=== PATIENT | female | born 1965 | race Caucasian/White ===

== ENCOUNTER 2020-02-29 11:27 | Emergency (ER) | payer SELFPAY ==
[~2020-02-29] VITALS: Ht 154.9 cm; Wt 85.3 kg
[2020-02-29 11:30] VITALS: BP 149/89; Ht 154.9 cm; Wt 85.3 kg
== END 2020-02-29 12:28 | disposition home or self-care (01) ==
LOC: ED 11:27
DX: U07.1 COVID-19 (principal); J40 Bronchitis, not specified as acute or chronic; I10 Essential (primary) hypertension; Z98.51 Tubal ligation status
CPT/HCPCS: U0003-CS

== ENCOUNTER 2020-03-04 09:36 | Emergency (ER) | payer MEDICAID, SELFPAY ==
[~2020-03-04] VITALS: Ht 157.5 cm; Wt 85.3 kg
[2020-03-04 09:38] VITALS: Ht 157.5 cm; Wt 85.3 kg
[2020-03-04 11:32] VITALS: BP 120/89
== END 2020-03-04 11:32 | disposition home or self-care (01) ==
LOC: ED 09:36
DX: U07.1 COVID-19 (principal); I10 Essential (primary) hypertension; Z98.51 Tubal ligation status; R10.13 Epigastric pain
CPT/HCPCS: Q0092

== ENCOUNTER 2020-03-29 13:02 | Emergency (ER) | payer MEDICAID ==
[~2020-03-29] VITALS: Ht 160 cm; Wt 78.9 kg
[2020-03-29 13:03] VITALS: Ht 160 cm; Wt 78.9 kg
[2020-03-29 15:25] VITALS: BP 144/84
== END 2020-03-29 15:25 | disposition home or self-care (01) ==
LOC: ED 13:02
DX: R05 Cough (principal); R09.1 Pleurisy; I10 Essential (primary) hypertension
CPT/HCPCS: Q0092